=== PATIENT | female | born 1990 | race Caucasian/White ===

== ENCOUNTER 2019-11-07 09:00 | Outpatient (RCR) | payer OTHER, SELFPAY ==
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
--- NOTE | 2019-10-11 10:27 | PT.OPPOC ---
Physical, Occupational & Speech Therapy At [facility] Current Diagnoses Dyspareunia not due to a substance or known physiological condition (10/11/19) Pain in unspecified hip (10/11/19) Sacroiliitis, not elsewhere classified (10/11/19) Low back pain (10/11/19) Pelvic and perineal pain (10/11/19) Visit Care Team Role Provider Type Leonarda Shearer Attending Provider Non-Staff Primary Care Provider Specialty: Internal Medicine Address: [address] [place] [address], [facility] Email: Plan Of Care PT-OP-T Assessment and Plan Start: 08/14/19 09:21 Freq: Status: Active Protocol: Document 10/11/19 07:30 AMB (Rec: 10/11/19 10:07 AMB [id number]) Physical Therapy Assessment Goals Three Impairment Gait/stairs Short Term Goal (STG) Carito will ambulate for 20 minutes without an increase in her baseline pain. STG Duration 4 weeks Jail Goal (LTG) Carito will ascend and descend a flight of stairs with 4/10 pain or less. PROGRESS MADE LTG Duration 8 weeks Two Impairment ROM Short Term Goal (STG) Carito will increase her lumbar flexion to 50 degrees without an increase in pain. STG Duration 4 weeks Jail Goal (LTG) Carito will increase her hip flexion to 110 degrees without an increase in pain. LTG Duration 8 weeks One Impairment Strength Short Term Goal (STG) Carito will improve her knee extension on the right to 4+/5 or better. STG Duration 4 weeks Jail Goal (LTG) Carito will improve her LE strength so that she can squat down to lift her youngest child without an increase in her baseline pain. LTG Duration 8 weeks Assessment Summary Assessment Carito has been tolerating more work in PT. She continues to have pain that radiates into R hip. She has not brought up pelvic floor PT again, as she does request her 's presence during any internal assessment. She is at the point where is looking for a diagnosis, she is awaiting approval of a lumbar MRI, and is hoping to hear back from her neurologist about her brain MRI. She would likely benefit more from physial therapy after she is at the point where she understands what is going on in her body and is ready to push for better function. Physical Therapy Plan Frequency and Duration Frequency of Treatment 2x/Week Duration of Treatment 8 weeks Plan of Care Start Date 10/11/19 Plan of Care End Date 12/06/19 Therapeutic Interventions Therapeutic Interventions Aquatic Therapy,Home Exercise Program,Joint Mobilizations, Manual Therapy,Neuromuscular Re-education,Self-Care/Home Management,Therapeutic Activities,Therapeutic Exercises Modalities Biofeedback,Cold Pack/Ice Massage,Electric Stimulation, Hot Packs Next Visit Focus/Plan Next Note Type Treatment Note Next Visit Plan Advance lumbosacral stabilization as tolerated, education in chronic pain, let pt bring up pelvic floor component. Plan of Care Dates Plan of Care Start Date 10/11/19 Plan of Care End Date 12/06/19 Electronically Signed by: Za Mccauley, PT 10/11/19 [id number] Please Sign and Return: I have reviewed this Plan of Care and certify that the skilled therapy services above are required to meet the patient?s needs. Physician Signature Date Printed Name and Credentials Clinical Instructor Signature Printed Name and Credentials
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
--- NOTE | 2020-03-17 14:24 | PT-OP ANOTE ---
Pt cx'd due to new cough, a lot of coughing.
--- NOTE | 2020-05-13 10:16 | PT-OP ANOTE ---
Per phone conversation, the pt reports answering the automated phone to cancel her appt today. This message was not received by the clinic and pt appeared as a no show. The pt states she cancelled because she has been sick and has been waiting for results from COVID test. When she cancelled she had not received her test results. Today she knows she is negative, but is still sick. She reports receiving a new referral for PT, but states it was received in March. She was instructed to request another referral from her physician since her current referral is > 30 days old, and to call and schedule with her primary therapist, Za Mccauley DPT as soon as she receives her referral to get scheduled. Warned pt no to delay as schedules fill up fast. The pt states she did not schedule back in March when she first received her referral because no appts were available. Will hold chart open through June, after Za returns, to allow pt time to be seen. If pt fails to schedule, she will be discharged from therapy and will need a new referral to return to physical therapy.
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
== END 2020-06-23 14:06 ==
LOC: PHYS 09:00
PROVIDERS: PCP Internal Medicine; Visit Provider Internal Medicine
DX: M25.559 Pain in unspecified hip (principal); M54.5 Low back pain; F52.6 Dyspareunia not due to a substance or known physiological condition; R10.2 Pelvic and perineal pain; M46.1 Sacroiliitis, not elsewhere classified
CPT/HCPCS: 97014; 97110; 97140; 97162; 97535; G0283

== ENCOUNTER 2020-08-20 09:53 | Outpatient (RCR) | payer OTHER, SELFPAY ==
--- NOTE | 2020-08-20 16:00 | PT.OPPOC ---
Physical, Occupational & Speech Therapy At [facility] Current Diagnoses Low back pain (08/20/20) Pelvic and perineal pain (08/20/20) Dizziness and giddiness (08/20/20) Headache, unspecified (08/20/20) Visit Care Team Role Provider Type Leonarda Shearer MD Attending Provider Non-Staff Primary Care Provider Referring Provider Specialty: Internal Medicine Address: [address] [place] [address], [id number] Email: Plan Of Care PT-OP-T Assessment and Plan Start: 08/20/20 07:38 Freq: Status: Active Protocol: Document 08/20/20 10:15 AMB (Rec: 08/23/20 09:09 AMB [email or web address]) Physical Therapy Assessment Rehab Potential Rehabilitation Potential Fair Evaluation Complexity Number of Personal Factors/Comorbidities 3 or More Number of Body Systems Impaired 4 or More Clinical Presentation at Evaluation Evolving Impairments Impairments Activity Tolerance,Balance, Functional Activities, Functional Mobility,Pain, Posture,ROM,Strength Goals Four Impairment HEP Short Term Goal (STG) Carito will be independent and consistent with a HEP to improve her lower back, hip and pelvic floor mobility and stability STG Duration 4 weeks Three Impairment Gait/stairs Short Term Goal (STG) Carito will ambulate for 20 minutes without an increase in her baseline pain. STG Duration 4 weeks Machine Binding Folder Goal (LTG) Carito will ascend and descend a flight of stairs with 4/10 pain or less, and without loss of balance. LTG Duration 8 weeks Two Impairment ROM Short Term Goal (STG) Carito will increase her lumbar flexion to 50 degrees without an increase in pain. STG Duration 4 weeks Fpc Goal (LTG) Carito will increase her hip flexion to 110 degrees without an increase in pain. LTG Duration 8 weeks One Impairment Strength Short Term Goal (STG) Carito will improve her knee extension on the right to 4+/5 or better. STG Duration 4 weeks Fpc Goal (LTG) Carito will improve her LE strength so that she can squat down to lift her youngest child without an increase in her baseline pain. LTG Duration 8 weeks Assessment Summary Assessment Carito returns to physical therapy with similar impairments to her evaluation last year. If anything she is having more complaints and has started falling more. She has kept up with some of her gentle strengthening exercises per her report, but has not kept up with her work on her pelvic floor. Physical Therapy Plan Frequency and Duration Frequency of Treatment 1x/Week Duration of Treatment 12 weeks Plan of Care Start Date 08/20/20 Plan of Care End Date 11/12/20 Therapeutic Interventions Therapeutic Interventions Balance Training,Home Exercise Program,Manual Therapy, Neuromuscular Re-education, Self-Care/Home Management, Therapeutic Activities, Therapeutic Exercises Modalities Biofeedback,Cold Pack/Ice Massage,Electric Stimulation, Hot Packs Next Visit Focus/Plan Next Note Type Treatment Note Next Visit Plan Begin progressive relaxation/ core stability/ gentle stretching program Plan of Care Dates Plan of Care Start Date 08/20/20 Plan of Care End Date 11/12/20 Electronically Signed by: Za Mccauley, PT 08/23/20 09 Please Sign and Return: I have reviewed this Plan of Care and certify that the skilled therapy services above are required to meet the patient?s needs. Physician Signature Date Printed Name and Credentials Clinical Instructor Signature Printed Name and Credentials
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
== END 2020-12-05 10:12 ==
LOC: PHYS 09:53
PROVIDERS: PCP Internal Medicine; Referring Provider Internal Medicine; Visit Provider Internal Medicine
DX: R10.2 Pelvic and perineal pain (principal); M54.5 Low back pain; R42 Dizziness and giddiness; R51.9 Headache, unspecified
CPT/HCPCS: 97162

== ENCOUNTER 2022-02-13 16:49 | Observation (INO) | payer OTHER, SELFPAY ==
[2022-02-13] VITALS (18 sets, daily range): BP systolic 116–141; BP diastolic 75–101; PULSE 85–151; RESP 13–25; TEMP 36.4; O2SAT 95–98; BMI 39.6
--- NOTE | 2022-02-13 17:06 | DI.RAD.S_ITS ---
PROCEDURE: XR CHEST 1V INDICATIONS: chest pain TECHNIQUE: One view of the chest was acquired. COMPARISON: None. FINDINGS: Surgical changes and devices: None. Overlying EKG wires. Lungs and pleura: Lungs are clear. No pleural effusions or pneumothorax. Mediastinum: Mediastinal contours appear normal. Heart size is normal. Bones and chest wall: No suspicious bony lesions. Overlying soft tissues appear unremarkable. Metallic densities overlying the thoracic inlet likely external to patient. IMPRESSION: No evidence of an acute cardiopulmonary abnormality. Dictated by: Pankaj Toledo D.O. on 02/13/2022 at 16:32 Approved by: Pankaj Toledo D.O. on 02/13/2022 at 16:34
[2022-02-13 17:41] LABS: Add Manual Diff / Slide Review NO; Basophils Absolute Auto 100 /uL (0-100); Basophils Percent Auto 0.7 % (0-2); Eosinophils Absolute Auto 100 /uL (0-450); Eosinophils Percent Auto 0.8 % (2-4); Hematocrit 43.2 % (36-46); Hemoglobin 14.9 g/dL (12.0-16.0); Lymphocytes Absolute Auto 2000 /uL (1100-4500); Lymphocytes Percent Auto 16.1 % (25-40); Mean Corpuscular HGB Conc 34.5 % (30-36); Mean Corpuscular Hemoglobin 30.2 PG (26-34); Mean Corpuscular Volume 87.6 fL (80-100); Monocytes Absolute Auto 700 /uL (0-900); Monocytes Percent Auto 5.7 % (3-14); Neutrophils Absolute Auto 9700 /uL (1500-7000); Neutrophils Percent Auto 76.7 % (50-75); Platelet Count 281 X10^3/uL (150-400); Red Blood Cell Count 4.94 X10^6/uL (4.0-5.2); Red Cell Distribution Width 12.9 % (11.6-14.8); White Blood Cell Count 12.7 X10^3/uL (4.5-11.0)
[2022-02-13 17:55] LABS: COVID19 -Nasal RAPID Negative (Negative)
[2022-02-13 18:08] LABS: Alanine Aminotransferase 38 IU/L (<35); Albumin 4.4 g/dL (3.5-5.0); Albumin Globulin Ratio 1.2 (1.0-2.8); Alkaline Phosphatase 67 U/L (38-126); Aspartate Aminotransferase 37 IU/L (14-36); Bilirubin Total 0.4 mg/dL (0.2-1.3); Blood Urea Nitrogen 13 mg/dL (7-17); Carbon Dioxide 22 mmol/L (22-32); Chloride 103 mmol/L (98-107); Creatine Kinase 46 U/L (30-135); Estimated Glomerular Filt Rate > 60 mL/min (>60); Globulin 3.7 g/dL (1.7-4.1); Glucose 156 mg/dL (70-100); HEMOLYSIS < 15 (0-50); Lipase 106 U/L (23-300); Magnesium 1.9 mg/dL (1.6-2.3); Potassium 3.9 mmol/L (3.4-5.1); Sodium 136 mmol/L (137-145); Total Protein 8.1 g/dL (6.3-8.2)
--- NOTE | 2022-02-13 18:10 | ED_ITS ---
HPI - Arrhythmia/Palpitations General Chief Complaint: Arrhythmia/Palpitations Stated Complaint: SOB stopped BP meds/doctor heartrate 148 Time Seen by Provider: 02/13/22 17:41 Source: patient Mode of arrival: Ambulatory History of Present Illness HPI narrative: 31F nonsmoker with history of relatively new diagnosis of HTN and history of m ental health disease presents with her friend and a chief complaint of abnormal vital signs, feeling poorly, weak, short of breath and having chest pain over the past week or 2. She states that she has had a very odd course for the past few months that started with slowly rising blood pressures into the 140s in which she was eventually diagnosed with what they thought was renal artery stenosis by ultrasound. She was started on Amlodipine but tolerated it poorly and after a few days was switched to Losartan. She had been referred to nephrology and vascular she was told she does not have renal artery stenosis. She had started having increasingly low blood pressures and about a week ago had her propanolol and losartan stopped. Since then she has had episodes with her blood pressure dropping into the 80s and 90s and associated symptoms such as dizziness, weakness and lightheadedness. She denies any runny nose or sore throat. She has had episodes of chest pain and epigastric pain without obvious provocation, palliation or radiation. She has had nausea but denies any vomiting. She denies any abnormal bleeding. She denies any recent travel, history of clot or cancer Related Data Home Medications Medication Instructions Recorded Confirmed aripiprazole 2 mg tablet 2 mg PO DAILY 02/13/22 02/13/22 bupropion HCl 300 mg 24 hr tablet, 300 mg PO DAILY 02/13/22 02/13/22 extended release cyclobenzaprine 10 mg tablet 10 mg PO TID PRN 02/13/22 02/13/22 gabapentin 300 mg capsule 300 mg PO DAILY 02/13/22 02/13/22 gabapentin 300 mg capsule 600 mg PO BEDTIME 02/13/22 02/13/22 sertraline 100 mg tablet 100 mg PO DAILY 02/13/22 02/13/22 trazodone 50 mg tablet 50 mg PO BEDTIME 02/13/22 02/13/22 Allergies Allergy/AdvReac Type Severity Reaction Status Date / Time azithromycin Allergy Mild Vomiting Verified 02/13/22 17:01 Review of Systems Review of Systems Narrative: GENERAL: Denies chills, fatigue, malaise, fever, sweats. HEENT: Denies sinus pain, ear pain, sore throat, difficulty swallowing, dizziness. RESPIRATORY: see HPI CARDIOVASCULAR:see HPI GASTROINTESTINAL: Denies nausea, vomiting, abdominal pain, diarrhea, constipation, melena. : Denies dysuria, frequency, incontinence, hematuria, urinary retention. MUSCULOSKELETAL: denies weakness, joint pain, or bony pain SKIN: Denies rash, skin lesions, or other NEUROLOGIC: Denies weakness, headache, numbness, change in speech, confusion, seizures, incoordination. PSYCHIATRIC: No concerning psychosocial issues. 12 point review of systems is negative except for those stated above Patient History Medical History (Updated 02/14/22 @ 04:19 by Jordan Beltran DO) Adenomyosis Anxiety delivery due to maternal disorder Depression Eclampsia Hypertension Panic disorder Surgical History (Updated 02/14/22 @ 02:15 by Elinor Pugh MD) H/O hysterectomy for benign disease Family History (Updated 02/14/22 @ 02:45 by Elinor Pugh MD) Mother Diabetes mellitus Father Hypertension Social History household members: spouse, family and children Smoking Status: Never smoker alcohol intake: never Smoking Status: Never smoker Substance Use Type: marijuana Exam Narrative Exam Narrative: GENERAL: 31 year old patient appears stated age. Well-developed patient, in mild distress. HEAD: Atraumatic. Normocephalic. EYES: Pupils equal round and reactive. Extraocular motions intact. No scleral icterus. No injection or drainage. ENT: Nose without bleeding, purulent drainage. Throat without erythema, tonsillar hypertrophy or exudate. Airway patent. NECK: Trachea midline. Non tender CARDIOVASCULAR: Tachycardic but regular rhythm without murmurs, gallops, or rubs. RESPIRATORY: Clear to auscultation. Breath sounds equal bilaterally. No wheezes, rales, or rhonchi. GASTROINTESTINAL: Abdomen soft, non-tender, nondistended. EXTREMITIES: No edema or joint tenderness. BACK: Nontender without deformity or crepitance. No flank tenderness. NEURO: AOx3. SKIN: No rash or erythema of visible areas Initial Vital Signs Initial Vital Signs: Vital Signs Temperature 97.5 F L 02/13/22 17:01 Pulse Rate 151 H 02/13/22 17:01 Respiratory Rate 18 02/13/22 17:01 Blood Pressure 141/101 H 02/13/22 17:01 Pulse Oximetry 98 02/13/22 17:01 Course Orders Ordered: Acetaminophen (Acetaminophen 325 Mg Tablet) 650 mg PO Q6HR PRN PRN Reason: Fever/Mild Pain (1-3) Last Admin: 02/14/22 03:11 Dose: 650 mg Documented by: MANDY Aripiprazole (Aripiprazole 2 Mg Tablet) 2 mg PO DAILY MARGY Bupropion HCl (Bupropion Xl 150 Mg Tab) 300 mg PO DAILY MARGY Cyclobenzaprine HCl (Cyclobenzaprine 10 Mg Tablet) 10 mg PO TID PRN PRN Reason: Pain (Scale Score 4-6) Gabapentin (Gabapentin 300 Mg Capsule) 300 mg PO DAILY MARGY Gabapentin (Gabapentin 300 Mg Capsule) 600 mg PO BEDTIME [facility] Last Admin: 02/14/22 02:59 Dose: 600 mg Documented by: MANDY Naloxone HCl (Naloxone 0.4 Mg/Ml Vial) 0.2 mg IV Q2MIN PRN PRN Reason: Opiate Reversal Sertraline HCl (Sertraline 50 Mg Tablet) 100 mg PO DAILY MARGY Trazodone HCl (Trazodone 50 Mg Tablet) 50 mg PO BEDTIME [facility] Last Admin: 02/14/22 02:59 Dose: 50 mg Documented by: MANDY Discontinued Medications Sodium Chloride (Normal Saline 0.9%) 1,000 mls @ 1,000 mls/hr IV BOLUS ONE Stop: 02/13/22 19:11 Last Infusion: 02/13/22 20:31 Dose: 0 mls/hr Documented by: Admin: 02/13/22 18:21 Dose: 1,000 mls/hr Documented by: TRESA Sodium Chloride (Normal Saline 0.9%) 1,000 mls @ 1,000 mls/hr IV BOLUS ONE Stop: 02/13/22 22:01 Last Infusion: 02/13/22 23:25 Dose: 0 mls/hr Documented by: Admin: 02/13/22 21:05 Dose: 1,000 mls/hr Documented by: ZURI Propranolol HCl (Propranolol 10 Mg Tablet) 10 mg PO NOW ONE Stop: 02/14/22 01:52 Last Admin: 02/14/22 02:59 Dose: 10 mg Documented by: ROSDOT Vital Signs Vital signs: Vital Signs - 8 hr 02/13/22 20:30 02/13/22 20:52 02/13/22 21:00 Pulse Rate 127 H 135 H 134 H Respiratory Rate 23 22 17 Blood Pressure 122/85 129/86 125/79 Pulse Oximetry 97 97 95 02/13/22 21:30 02/13/22 22:00 02/13/22 22:30 Pulse Rate 134 H 127 H 85 Respiratory Rate 22 21 23 Blood Pressure 119/86 119/78 125/82 Pulse Oximetry 97 96 96 02/13/22 23:00 02/13/22 23:44 02/13/22 23:46 Pulse Rate 125 H 125 H 121 H Respiratory Rate 19 13 17 Blood Pressure 135/85 116/75 Pulse Oximetry 97 97 97 02/14/22 00:00 02/14/22 00:30 Pulse Rate 121 H 127 H Respiratory Rate 19 22 Blood Pressure 118/73 115/75 Pulse Oximetry 96 98 MDM - Arrhythmia/Palpitations Lab Data Result diagrams: 02/13/22 17:25 02/13/22 17:40 Labs: Lab Results 02/13/22 02/13/22 02/13/22 Range/Units 17:25 17:30 17:40 WBC 12.7 H (4.5-11.0) X10^3/uL RBC 4.94 (4.0-5.2) X10^6/uL Hgb 14.9 (12.0-16.0) g/dL Hct 43.2 (36-46) % MCV 87.6 (80-100) fL MCH 30.2 (26-34) PG MCHC 34.5 (30-36) % RDW 12.9 (11.6-14.8) % Plt Count 281 (150-400) X10^3/uL Neut % (Auto) 76.7 H (50-75) % Lymph % (Auto) 16.1 L (25-40) % [place] % (Auto) 5.7 (3-14) % Eos % (Auto) 0.8 L (2-4) % Baso % (Auto) 0.7 (0-2) % Neut # (Auto) 9700 H (6016-5665) /uL Lymph # (Auto) 2000 (7848-6526) /uL [place] # (Auto) 700 (0-900) /uL Eos # (Auto) 100 (0-450) /uL Baso # (Auto) 100 (0-100) /uL D-Dimer (<230) ng/mL Sodium 136 L (137-145) mmol/L Potassium 3.9 (3.4-5.1) mmol/L Chloride 103 (98-107) mmol/L Carbon Dioxide 22 (22-32) mmol/L BUN 13 (7-17) mg/dL Creatinine 1.00 (0.52-1.04) mg/dL Estimated GFR > 60 (>60) mL/min BUN/Creatinine Ratio 13.0 (6-22) Glucose 156 H (70-100) mg/dL Calcium 9.0 (8.4-10.2) mg/dL Magnesium 1.9 (1.6-2.3) mg/dL Total Bilirubin 0.4 (0.2-1.3) mg/dL AST 37 H (14-36) IU/L ALT 38 H (<35) IU/L Alkaline Phosphatase 67 (38-126) U/L Total Creatine Kinase 46 (30-135) U/L CK-MB (CK-2) TNP CK-MB (CK-2) Rel Index TNP Troponin I < 0.012 (0.01-0.034) ng/mL Total Protein 8.1 (6.3-8.2) g/dL Albumin 4.4 (3.5-5.0) g/dL Globulin 3.7 (1.7-4.1) g/dL Albumin/Globulin Ratio 1.2 (1.0-2.8) Lipase 106 (23-300) U/L TSH (0.47-4.68) uIU/mL SARS-CoV-2 (PCR) Negative (Negative) 02/13/22 02/13/22 Range/Units 17:40 17:57 WBC (4.5-11.0) X10^3/uL RBC (4.0-5.2) X10^6/uL Hgb (12.0-16.0) g/dL Hct (36-46) % MCV (80-100) fL MCH (26-34) PG MCHC (30-36) % RDW (11.6-14.8) % Plt Count (150-400) X10^3/uL Neut % (Auto) (50-75) % Lymph % (Auto) (25-40) % [place] % (Auto) (3-14) % Eos % (Auto) (2-4) % Baso % (Auto) (0-2) % Neut # (Auto) (6735-5621) /uL Lymph # (Auto) (2011-9455) /uL [place] # (Auto) (0-900) /uL Eos # (Auto) (0-450) /uL Baso # (Auto) (0-100) /uL D-Dimer < 200 (<230) ng/mL Sodium (137-145) mmol/L Potassium (3.4-5.1) mmol/L Chloride (98-107) mmol/L Carbon Dioxide (22-32) mmol/L BUN (7-17) mg/dL Creatinine (0.52-1.04) mg/dL Estimated GFR (>60) mL/min BUN/Creatinine Ratio (6-22) Glucose (70-100) mg/dL Calcium (8.4-10.2) mg/dL Magnesium (1.6-2.3) mg/dL Total Bilirubin (0.2-1.3) mg/dL AST (14-36) IU/L ALT (<35) IU/L Alkaline Phosphatase (38-126) U/L Total Creatine Kinase (30-135) U/L CK-MB (CK-2) CK-MB (CK-2) Rel Index Troponin I (0.01-0.034) ng/mL Total Protein (6.3-8.2) g/dL Albumin (3.5-5.0) g/dL Globulin (1.7-4.1) g/dL Albumin/Globulin Ratio (1.0-2.8) Lipase (23-300) U/L TSH 2.53 (0.47-4.68) uIU/mL SARS-CoV-2 (PCR) (Negative) Imaging Data Chest x-ray: [facility]: [address] [address] XRay Report Signed Patient: Carito Richardson MR#: [id number] : 1990 Acct:[id number] Age/Sex: 31 / F Date of Service: 02/13/22 Loc: ED Accession Number: [id number] ?? Procedure: XR chest 1V Ordering Provider: Mehul Mena D.O. PROCEDURE:? XR CHEST 1V ? INDICATIONS:? chest pain ? TECHNIQUE:? One view of the chest was acquired.? ? COMPARISON:? None. ? FINDINGS:? ? Surgical changes and devices:? None.? Overlying EKG wires. ? Lungs and pleura:? Lungs are clear.? No pleural effusions or pneumothorax.? ? Mediastinum:? Mediastinal contours appear normal.? Heart size is normal.? ? Bones and chest wall:? No suspicious bony lesions.? Overlying soft tissues appear unremarkable.? Metallic densities overlying the thoracic inlet likely external to patient. ? IMPRESSION:? ? No evidence of an acute cardiopulmonary abnormality. ? ? Dictated by: Pankaj Toledo D.O. on 02/13/2022 at 16:32 ? ? Approved by: Paknaj Toledo D.O. on 02/13/2022 at 16:34 ? CT scan - abdomen/pelvis: [facility]: [place] [address] CT Scan Report Signed Patient: Carito Richardson MR#: [id number] : 1990 Acct:[id number] Age/Sex: 31 / F Date of Service: 02/13/22 Loc: ED Accession Number: [id number] ?? Procedure: CT abdomen pelvis w con Ordering Provider: Jordan Beltran D.O. PROCEDURE:? CT ABDOMEN PELVIS W CON ? INDICATIONS:? tachycardia, chest pain, upper abdominal pain, leukocytosis ? TECHNIQUE:? After the administration of intravenous contrast, axial sections acquired from the lung bases to the pubic symphysis.? Coronal and sagittal reformats were performed.? For radiation dose reduction, the following was used:? automated exposure control, adjustment of mA and/or kV according to patient size.? ? COMPARISON:? None. ? FINDINGS:? Image quality:? Excellent.? ? Lung bases:? Unremarkable. Heart:? No significant findings. ? ABDOMEN: Liver:? Unremarkable.? ? Gallbladder:? Previously resected.? ? Biliary ducts:? Unremarkable.? ? Pancreas:? Unremarkable.? ? Spleen:? Unremarkable.? ? Adrenal Glands:? Unremarkable.? ? Kidneys and Ureters:? Unremarkable.? ? ? Stomach and Bowel:? Stomach, small bowel loops, and colon are unremarkable.? Peritoneum:? No abnormal intraperitoneal fluid.? No free air.? ? Ventral Wall: ? No hernias.? Abdominal Nodes:? No retroperitoneal or mesenteric adenopathy by size criteria.? Vessels:? Aorta and inferior vena cava are normal in size.? ? PELVIS: Pelvic Organs:? Unremarkable except for apparent prior hysterectomy..? ? Bladder:? Unremarkable.? ? Pelvic Nodes: No enlarged lymph nodes.? Miscellaneous: No hernias are seen. ? ? A normal or abnormal appendix is not found. ? Bones:? Unremarkable.? IMPRESSION:? Prior cholecystectomy and hysterectomy.? No evidence of acute dis ease within the visualized abdomen and pelvis.? A source of current pain and leukocytosis is not found. ? ? Dictated by: Ramon Oliveros M.D. on 02/13/2022 at 20:02 ? ? Approved by: Ramon Oliveros M.D. on 02/13/2022 at 20:05 ? CT scan - chest: [facility]: [place] [address] CT Scan Report Signed Patient: Carito Richardson MR#: [id number] : 1990 Acct:[id number] Age/Sex: 31 / F Date of Service: 02/13/22 Loc: ED Accession Number: [id number] ?? Procedure: CT angio chest PE protocol Ordering Provider: Jordan Beltran D.O. PROCEDURE:? CT ANGIO CHEST PE PROTOCOL ? INDICATIONS:? chest pain, SOB, tachycardia ? TECHNIQUE:? After the administration of intravenous contrast, 2 mm thick sections acquired from the pulmonary apices to the posterior costophrenic angles.? 3-dimensional maximum intensity projection (MIP) coronal and sagittal reformats were then acquired through the thorax.? For radiation dose reduction, the following was used:? automated exposure control, adjustment of mA and/or kV according to patient size.? ? COMPARISON:? None. ? FINDINGS:? Image quality:? Mildly reduced by body habitus..? ? Pulmonary arteries:? Pulmonary arteries are normal in size, and demonstrate no intraluminal filling defects to suggest central pulmonary embolism.? ? Lungs and pleura:? Lungs are clear.? No pleural effusions or pneumothorax.? Central and peripheral airways are patent.? ? Mediastinum:? Heart size is normal, without pericardial effusion.? No mediastinal or hilar adenopathy.? Thoracic aorta is normal in caliber and enhancement.? Esophagus is normal in caliber, without hiatal hernia.? ? Bones and chest wall:? No suspicious bony lesions.? Ribs and thoracic spine appear intact throughout.? Thyroid gland appears normal.? No axillary or supraclavicular adenopathy.? ? Abdomen:? Visualized upper abdominal solid organs appear normal in the early arterial phase of enhancement.? ? IMPRESSION:? No evidence of pneumonia, pneumonitis, or pulmonary embolus.? Source of current chest pain and shortness of breath is not identified. ? ? Dictated by: Ramon Oliveros M.D. on 02/13/2022 at 20:16 ? ? Approved by: Ramon Oliveros M.D. on 02/13/2022 at 20:18 ? ECG Data Interpretation: EKG is sinus tachycardia with rate of 128 and free of any signs of ischemia or ectopy. No ST segmental elevation or depression. No T wave inversions MDM Narrative Medical decision making narrative: Patient continues to have persistent, symptomatic sinus tachycardia at despite 2 L IV fluid. She has been thoroughly evaluated and there is no significant lab abnormality, EKG shows no abnormality other than sinus tachycardia. No evidence of electrolyte abnormality, profound dehydration, anemia, sepsis. Pulmonary embolism considered but thought unlikely given lack of findings on CT angiogram. No abnormal findings on advanced imaging. This is most likely a consequence of medication reaction, or absence, perhaps even rebound tachycardia given recent cessation of Inderal. Patient requires hospitalization for further evaluation, possible echo, stabilization medications. Discharge Plan Departure Patient Disposition: Admitted as Observation Clinical Impression: Tachycardia, Dizziness, Medication reaction Admit Date/Time: 02/14/22 00:54 Admit Provider: Elinor Pugh
[2022-02-13 18:19] LABS: Troponin I < 0.012 ng/mL (0.01-0.034)
[2022-02-13] MEDS: SODIUM CHLORIDE 0.9% 1,000 ML 1000 ML IV ×2 (18:21→21:05)
[2022-02-13 18:24] LABS: D Dimer < 200 ng/mL (<230)
--- NOTE | 2022-02-13 18:41 | PC.NURSE ---
Pt states she was taken off of Propranolol 40mg BID (had been taking for 1.5yrs) and Losartan 100mg daily by her PCP oleg torres
--- NOTE | 2022-02-13 18:51 | DI.CT.S_ITS ---
PROCEDURE: CT ANGIO CHEST PE PROTOCOL INDICATIONS: chest pain, SOB, tachycardia TECHNIQUE: After the administration of intravenous contrast, 2 mm thick sections acquired from the pulmonary apices to the posterior costophrenic angles. 3-dimensional maximum intensity projection (MIP) coronal and sagittal reformats were then acquired through the thorax. For radiation dose reduction, the following was used: automated exposure control, adjustment of mA and/or kV according to patient size. COMPARISON: None. FINDINGS: Image quality: Mildly reduced by body habitus.. Pulmonary arteries: Pulmonary arteries are normal in size, and demonstrate no intraluminal filling defects to suggest central pulmonary embolism. Lungs and pleura: Lungs are clear. No pleural effusions or pneumothorax. Central and peripheral airways are patent. Mediastinum: Heart size is normal, without pericardial effusion. No mediastinal or hilar adenopathy. Thoracic aorta is normal in caliber and enhancement. Esophagus is normal in caliber, without hiatal hernia. Bones and chest wall: No suspicious bony lesions. Ribs and thoracic spine appear intact throughout. Thyroid gland appears normal. No axillary or supraclavicular adenopathy. Abdomen: Visualized upper abdominal solid organs appear normal in the early arterial phase of enhancement. IMPRESSION: No evidence of pneumonia, pneumonitis, or pulmonary embolus. Source of current chest pain and shortness of breath is not identified. Dictated by: Ramon Oliveros M.D. on 02/13/2022 at 20:16 Approved by: Ramon Oliveros M.D. on 02/13/2022 at 20:18
--- NOTE | 2022-02-13 18:53 | DI.CT.S_ITS ---
PROCEDURE: CT ABDOMEN PELVIS W CON INDICATIONS: tachycardia, chest pain, upper abdominal pain, leukocytosis TECHNIQUE: After the administration of intravenous contrast, axial sections acquired from the lung bases to the pubic symphysis. Coronal and sagittal reformats were performed. For radiation dose reduction, the following was used: automated exposure control, adjustment of mA and/or kV according to patient size. COMPARISON: None. FINDINGS: Image quality: Excellent. Lung bases: Unremarkable. Heart: No significant findings. ABDOMEN: Liver: Unremarkable. Gallbladder: Previously resected. Biliary ducts: Unremarkable. Pancreas: Unremarkable. Spleen: Unremarkable. Adrenal Glands: Unremarkable. Kidneys and Ureters: Unremarkable. Stomach and Bowel: Stomach, small bowel loops, and colon are unremarkable. Peritoneum: No abnormal intraperitoneal fluid. No free air. Ventral Wall: No hernias. Abdominal Nodes: No retroperitoneal or mesenteric adenopathy by size criteria. Vessels: Aorta and inferior vena cava are normal in size. PELVIS: Pelvic Organs: Unremarkable except for apparent prior hysterectomy.. Bladder: Unremarkable. Pelvic Nodes: No enlarged lymph nodes. Miscellaneous: No hernias are seen. A normal or abnormal appendix is not found. Bones: Unremarkable. IMPRESSION: Prior cholecystectomy and hysterectomy. No evidence of acute disease within the visualized abdomen and pelvis. A source of current pain and leukocytosis is not found. Dictated by: Ramon Oliveros M.D. on 02/13/2022 at 20:02 Approved by: Ramon Oliveros M.D. on 02/13/2022 at 20:05
[2022-02-13 19:46] LABS: TSH w/ Reflex to FT4 2.53 uIU/mL (0.47-4.68)
[2022-02-14] VITALS (9 sets, daily range): BP systolic 109–166; BP diastolic 69–107; PULSE 94–127; RESP 16–22; TEMP 36.4–36.7; O2SAT 95–98; BMI 39.6
--- NOTE | 2022-02-14 02:13 | P.HP_ITS ---
History of Present Illness History of Present Illness Chief complaint: SOB stopped BP meds/doctor heartrate 148 Narrative: Patient is a 31-year-old female with depression/anxiety, and panic disorder, hypertension who presents to the emergency department with tachycardia and shortness of breath. Patient reports a history of eclampsia with which resulted in a at 30 weeks. She also had a hysterectomy approximately 4 years ago due to adenomyosis. She does struggle with depression/anxiety as well as a panic disorder. She follows with a provider locally for her psychiatric medications. She is also on propranolol for her panic disorder. Recently, her primary care provider noted that her blood pressure was increasing. Urine protein was done and was positive. She was therefore referred to a baseball pitcher for further evaluation. Initially, they started her on amlodipine. She notes she did not tolerate it, it was discontinued, and she was subsequently started on losartan. There is some concern for renal artery stenosis. A renal arterial ultrasound was done and was initially concerning for being abnormal. A vascular surgeon was consulted, renal artery ultrasound was repeated, and it has since been ruled out. Shortly after being started on the losartan, patient developed progressive difficulties with hypotension. She had blood pressures as low as the 70s systolic. Subs equently, her blood pressure medications as well as propranolol were discontinued. Since that time, she has noticed persistent tachycardia. She states that she is having exercise intolerance. She notes that when her rate is fast she also developed a left-sided headache. She has had some shortness of breath. No chest pain or tightness. Heart rate today was 148 and she subsequently presented for further evaluation. On arrival to the Emergency Department, heart rate was noted to be in the 120s consistently. Blood pressures were within normal limits. White blood cell count was mildly elevated at 12.7. Sodium was slightly low at 136. Glucose was elevated at 156. Very mild elevations of her AST and ALT were noted. TSH was normal at 2.53. Lipase was normal. COVID was negative. Chest x-ray was within normal limits. D-dimer was within normal limits. CT pulmonary angiogram was do ne to rule out pulmonary embolus. There is no evidence of infection or emboli. CT of the abdomen and pelvis were also performed which revealed evidence of prior cholecystectomy and hysterectomy but no acute abnormalities. Patient received 1 L of normal saline. She remained persistently tachycardic. Admission was recommended for further observation and consideration of an echocardiogram. Patient reports she has been eating and drinking well. No nausea or vomiting. She states she drinks a 0.5 gal of water daily. No fevers or chills. No ill symptoms. Patient History Medical History (Updated 02/14/22 @ 02:16 by Elinor Pugh MD) Adenomyosis Anxiety delivery due to maternal disorder Depression Eclampsia Hypertension Panic disorder Surgical History (Updated 02/14/22 @ 02:15 by Elinor Pugh MD) H/O hysterectomy for benign disease Family & Social History Family History (Updated 02/14/22 @ 02:45 by Elinor Pugh MD) Mother Diabetes mellitus Father Hypertension Social History: Lifelong nonsmoker. No alcohol use. [place] 2 [place]. Safety & Behavioral: Feels Safe in Current Yes Environment Been Physically Hurt or No Threatened By a Person Tobacco & Substance use: Smoking Status Never smoker Substance Use Type marijuana Meds Home Medications and Allergies Home Medications Medication Instructions Recorded Confirmed Type aripiprazole 2 mg tablet 2 mg PO DAILY 02/13/22 02/13/22 History bupropion HCl 300 mg 24 hr tablet, 300 mg PO DAILY 02/13/22 02/13/22 History extended release cyclobenzaprine 10 mg tablet 10 mg PO TID PRN 02/13/22 02/13/22 History gabapentin 300 mg capsule 300 mg PO DAILY 02/13/22 02/13/22 History gabapentin 300 mg capsule 600 mg PO BEDTIME 02/13/22 02/13/22 History sertraline 100 mg tablet 100 mg PO DAILY 02/13/22 02/13/22 History trazodone 50 mg tablet 50 mg PO BEDTIME 02/13/22 02/13/22 History Allergies Allergy/AdvReac Type Severity Reaction Status Date / Time azithromycin Allergy Mild Vomiting Verified 02/13/22 17:01 Review of Systems Review of Systems Narrative: All other systems were reviewed negative Exam Vital Signs (past 8 hours): - 02/13/22 18:30 02/13/22 19:00 02/13/22 19:30 Pulse Rate 138 H 133 H 121 H Respiratory Rate 13 20 18 Blood Pressure 126/84 118/87 124/82 Pulse Oximetry 98 96 96 02/13/22 20:00 02/13/22 20:12 02/13/22 20:30 Pulse Rate 103 H 122 H 127 H Respiratory Rate 17 15 23 Blood Pressure 139/91 H 133/86 122/85 Pulse Oximetry 98 98 97 02/13/22 20:52 02/13/22 21:00 02/13/22 21:30 Pulse Rate 135 H 134 H 134 H Respiratory Rate 22 17 22 Blood Pressure 129/86 125/79 119/86 Pulse Oximetry 97 95 97 02/13/22 22:00 02/13/22 22:30 02/13/22 23:00 Pulse Rate 127 H 85 125 H Respiratory Rate 21 23 19 Blood Pressure 119/78 125/82 135/85 Pulse Oximetry 96 96 97 02/13/22 23:44 02/13/22 23:46 02/14/22 00:00 Pulse Rate 125 H 121 H 121 H Respiratory Rate 13 17 19 Blood Pressure 116/75 118/73 Pulse Oximetry 97 97 96 02/14/22 00:30 02/14/22 01:00 02/14/22 01:30 Pulse Rate 127 H 126 H 126 H Respiratory Rate 22 20 16 Blood Pressure 115/75 127/74 122/81 Pulse Oximetry 98 98 97 Oxygen Delivery Method Room Air Narrative Exam Narrative: GEN: Very pleasant adult female, Alert and oriented x3, no acute distress HEENT: Normocephalic, face symmetric, pupils equal round reactive to light, extraocular movements intact, sclerae anicteric, conjunctiva clear, nares patent, oropharynx reveals an intact soft and hard palate with moist mucous membranes, dentition is fair NECK: Supple, no lymphadenopathy, thyroid without enlargement or nodularity, carotids no bruits CHEST: Respiratory excursions symmetric, clear to auscultation bilaterally CV: Moderately tachycardic with regular rhythm, no murmurs, rubs, gallops, PMI cannot be palpated ABD: Soft, obese, nontender, nondistended, bowel sounds present in all 4 quadrants, body habitus limits exam EXTR: Warm, well perfused, no clubbing/cyanosis/edema SKIN: Warm and dry, without rash NEURO: Alert and oriented x3, cranial nerves 2 through 12 are intact and symmetric bilaterally, motor strength 5/5 throughout, sensation intact throughout PSYCH: Mood and affect is within normal limits, judgment and insight are appropriate Objective ECG Impression: Sinus tachycardia with a rate of 128. No acute ST or T-wave changes. Labs Result Diagrams: 02/13/22 17:25 02/13/22 17:40 Labs: Laboratory Results - last 24 hr 02/13/22 02/13/22 02/13/22 17:25 17:30 17:40 WBC 12.7 H RBC 4.94 Hgb 14.9 Hct 43.2 MCV 87.6 MCH 30.2 MCHC 34.5 RDW 12.9 Plt Count 281 Neut % (Auto) 76.7 H Lymph % (Auto) 16.1 L [place] % (Auto) 5.7 Eos % (Auto) 0.8 L Baso % (Auto) 0.7 Neut # (Auto) 9700 H Lymph # (Auto) 2000 [place] # (Auto) 700 Eos # (Auto) 100 Baso # (Auto) 100 D-Dimer Sodium 136 L Potassium 3.9 Chloride 103 Carbon Dioxide 22 BUN 13 Creatinine 1.00 Estimated GFR > 60 BUN/Creatinine Ratio 13.0 Glucose 156 H Calcium 9.0 Magnesium 1.9 Total Bilirubin 0.4 AST 37 H ALT 38 H Alkaline Phosphatase 67 Total Creatine Kinase 46 CK-MB (CK-2) TNP CK-MB (CK-2) Rel Index TNP Troponin I < 0.012 Total Protein 8.1 Albumin 4.4 Globulin 3.7 Albumin/Globulin Ratio 1.2 Lipase 106 TSH SARS-CoV-2 (PCR) Negative 02/13/22 02/13/22 17:40 17:57 WBC RBC Hgb Hct MCV MCH MCHC RDW Plt Count Neut % (Auto) Lymph % (Auto) [place] % (Auto) Eos % (Auto) Baso % (Auto) Neut # (Auto) Lymph # (Auto) [place] # (Auto) Eos # (Auto) Baso # (Auto) D-Dimer < 200 Sodium Potassium Chloride Carbon Dioxide BUN Creatinine Estimated GFR BUN/Creatinine Ratio Glucose Calcium Magnesium Total Bilirubin AST ALT Alkaline Phosphatase Total Creatine Kinase CK-MB (CK-2) CK-MB (CK-2) Rel Index Troponin I Total Protein Albumin Globulin Albumin/Globulin Ratio Lipase TSH 2.53 SARS-CoV-2 (PCR) Assessment & Plan Assessment and plan (1) Panic disorder: Status: Acute (2) Anxiety: Status: Acute (3) Depression: Status: Acute (4) Hypertension: Status: Acute Assessment & Plan narrative: 1. Sinus tachycardia Patient presented to the emergency department with tachycardia, shortness of breath with exertion, left-sided headache. She underwent extensive workup in the emergency department which revealed no evidence of infection, no evidence of hyperthyroidism, pulmonary embolus, arrhythmia, or other obvious etiology. Suspect reflex tachycardia from abrupt discontinuation of propranolol, which she had taken for quite a long time for her underlying panic disorder. Therefore, I am ordered a 1 time dose of propranolol. Echocardiogram has been ordered for the morning. However, if her tachycardia improves with resumption of propranolol, that may not be necessary. Patient is admitted under observation status. She had no arrhythmia in the emergency department during her stay there, I have not continued telemetry on the floor. 2. Hypertension Patient recently underwent extensive workup for hypertension. She had some proteinuria. Had a renal artery ultrasound which was initially interpreted as possibly abnormal. Subsequently it was confirmed her renal arteries were within normal limits and showed no evidence of renal artery stenosis. Unfortunately, when she was on a combination of both losartan and propranolol she developed hypotension. Blood pressure medications were subsequently discontinued. Blood pressure has been normotensive here. 3. Hyperglycemia Patient does have a family history of diabetes. Additionally, she has class 2 obesity, which increases her risk for diabetes. She was hyperglycemic in the emergency department. Will check a hemoglobin A1c. 4. Leukocytosis Likely reactive. Patient denies any symptoms of acute illness. 5. Minimal LFT elevation AST and ALT are minimally elevated. Would refer back to her primary care provider further follow-up. Given her obesity, she is at risk for steatohepatitis. 6. Anxiety/depression Will resume her usual home medications including gabapentin, Abilify, trazodone, Wellbutrin, Zoloft. 7. Panic disorder She had been on propranolol for her anxiety. She was unaware this was also a blood pressure medication. Her baseball pitcher therefore was unaware that she was taking propranolol. As noted above, she appears to have reflex tachycardia secondary to abrupt discontinuation. Discussed with her the possibility of her primary care provider continuing her on a beta-mravin to control both her blood pressure and her panic disorder. 8. Class 2 obesity BMI is 39 7. Would benefit from weight reduction. Code status Full Prophylaxis Low Franck score Disposition Admit to acute care under observation status. Time Spent With Patient Critical Care time: I spent a total of [] minutes of critical care time on this patient's care today; this time is exclusive of procedural time.
[2022-02-14] MEDS: PROPRANOLOL 10 MG TABLET PO (02:59)
[2022-02-14] MEDS: GABAPENTIN 300 MG CAPSULE 600 MG PO (02:59)
[2022-02-14] MEDS: TRAZODONE 50 MG TABLET PO (02:59)
[2022-02-14] MEDS: ACETAMINOPHEN 325 MG TABLET 650 MG PO (03:11)
--- NOTE | 2022-02-14 03:17 | PC.NURSE ---
Pt takes 2 mg of abilify at night time and according to [facility] the only dose we have in the hospital is [address] Pugh and she stated is ok for patient to take her own medication tonight.
[2022-02-14 05:54] LABS: Add Manual Diff / Slide Review NO; Basophils Absolute Auto 100 /uL (0-100); Basophils Percent Auto 0.6 % (0-2); Eosinophils Absolute Auto 100 /uL (0-450); Hematocrit 37.2 % (36-46); Hemoglobin 13.2 g/dL (12.0-16.0); Lymphocytes Absolute Auto 2400 /uL (1100-4500); Lymphocytes Percent Auto 23.1 % (25-40); Mean Corpuscular HGB Conc 35.4 % (30-36); Mean Corpuscular Hemoglobin 30.9 PG (26-34); Mean Corpuscular Volume 87.3 fL (80-100); Monocytes Absolute Auto 700 /uL (0-900); Monocytes Percent Auto 6.4 % (3-14); Neutrophils Absolute Auto 7100 /uL (1500-7000); Neutrophils Percent Auto 68.9 % (50-75); Platelet Count 230 X10^3/uL (150-400); Red Blood Cell Count 4.27 X10^6/uL (4.0-5.2); Red Cell Distribution Width 12.9 % (11.6-14.8); White Blood Cell Count 10.2 X10^3/uL (4.5-11.0)
[2022-02-14 06:00] LABS: Alanine Aminotransferase 30 IU/L (<35); Albumin 3.7 g/dL (3.5-5.0); Albumin Globulin Ratio 1.1 (1.0-2.8); Alkaline Phosphatase 57 U/L (38-126); Aspartate Aminotransferase 28 IU/L (14-36); BUN Creatinine Ratio 13.3 (6-22); Bilirubin Total 0.5 mg/dL (0.2-1.3); Blood Urea Nitrogen 12 mg/dL (7-17); Calcium 8.6 mg/dL (8.4-10.2); Carbon Dioxide 23 mmol/L (22-32); Chloride 107 mmol/L (98-107); Estimated Glomerular Filt Rate > 60 mL/min (>60); Globulin 3.3 g/dL (1.7-4.1); Glucose 110 mg/dL (70-100); HEMOLYSIS < 15 (0-50); Potassium 4.2 mmol/L (3.4-5.1); Sodium 138 mmol/L (137-145)
[2022-02-14 06:10] LABS: NT-proBNP (BNP-Adult 18+) 46 pg/mL (<125)
[2022-02-14 06:49] LABS: Hemoglobin A1C% w Est Avg Glu 5.4 % (4.0-6.0)
[2022-02-14] MEDS: PROPRANOLOL 10 MG TABLET 20 MG PO (08:15)
[2022-02-14] MEDS: buPROPion XL 150 MG TAB 300 MG PO (09:30)
[2022-02-14] MEDS: SERTRALINE 50 MG TABLET 100 MG PO (09:30)
[2022-02-14] MEDS: GABAPENTIN 300 MG CAPSULE PO (09:31)
--- NOTE | 2022-02-14 12:49 | PC.NURSE ---
Pt AOx4. Morning medications given. Discharge instructions given, IV removed fully intact. Pt's friend was waiting downstairs by ED.
--- NOTE | 2022-02-14 16:46 | P.DS_ITS ---
History of Present Illness History of Present Illness Chief complaint: SOB stopped BP meds/doctor heartrate 148 Narrative: 31-year-old female with depression/anxiety, and panic disorder, hypertension who presents to the emergency department with tachycardia and shortness of breath.? Patient reports a history of eclampsia with which resulted in a C- section at 30 weeks.? She also had a hysterectomy approximately 4 years ago due to adenomyosis.? She does struggle with depression/anxiety as well as a panic disorder.? She follows with a provider locally for her psychiatric medications.? She is also on propranolol for her panic disorder.? Recently, her primary care provider noted that her blood pressure was increasing.? Urine protein was done and was positive.? She was therefore referred to a estimating manager for further evaluation.? Initially, they started her on amlodipine.? She notes she did not t olerate it, it was discontinued, and she was subsequently started on losartan.? There is some concern for renal artery stenosis.? A renal arterial ultrasound was done and was initially concerning for being abnormal.? A vascular surgeon was consulted, renal artery ultrasound was repeated, and it has since been ruled out.? Shortly after being started on the losartan, patient developed progressive difficulties with hypotension.? She had blood pressures as low as the 70s systolic.? Subsequently, her blood pressure medications as well as propranolol were discontinued.? Since that time, she has noticed persistent tachycardia.? She states that she is having exercise intolerance.? She notes that when her rate is fast she also developed a left-sided headache.? She has had some shortness of breath.? No chest pain or tightness.? Heart rate today was 148 and she subsequently presented for further evaluation. On arrival to the Emergency Department, heart rate was noted to be in the 120s consistently.? Blood pressures were within normal limits.? White blood cell count was mildly elevated at 12.7.? Sodium was slightly low at 136.? Glucose was elevated at 156.? Very mild elevations of her AST and ALT were noted.? TSH was normal at 2.53.? Lipase was normal.? COVID was negative.? Chest x-ray was within normal limits.? D-dimer was within normal limits.? CT pulmonary angiogram was done to rule out pulmonary embolus.? There is no evidence of infection or emboli.? CT of the abdomen and pelvis were also performed which revealed evidence of prior cholecystectomy and hysterectomy but no acute abnormalities.? Patient received 1 L of normal saline.? She remained persistently tachycardic.? Admission was recommended for further observation and consideration of an echocardiogram. Patient reports she has been eating and drinking well.? No nausea or vomiting.? She states she drinks a 0.5 gal of water daily.? No fevers or chills.? No ill symptoms. Discharge Providers Provider Date of admission: 02/14/22 00:54 Discharge Date: 02/14/22 Primary care physician: Leonarda Shearer MD Discharge provider: Bharat Aguilera MD Summary Hospital Course Discharge Diagnosis: 1. Reflex sinus tachycardia secondary to cessation of beta-marvin 2. Hypertension 3. Panic disorder 4. Acute leukocytosis, reactive 5. Stress hyperglycemia, normal A1c Hospital Course: Patient admitted overnight to hospital observation. She was put back on her propranolol with marked improvement in palpitations. Her heart rate had come down to normal range by the time of discharge. She would like to go back on her previous dose of metoprolol which was helping her panic symptoms as well as headaches. Status at Discharge Cognitive/behavioral status at discharge: oriented Functional status at discharge: independent ambulation Overall status at discharge: patient is back to baseline Time Spent with Patient Time spent: Less than 30 minutes Exam Vital Signs (past 8 hours): Oxygen Delivery Method Room Air Oxygen Flow Rate 0 Narrative Exam Narrative: General: Alert smiling female in no distress Objective Labs Result Diagrams: 02/14/22 05:35 02/14/22 05:35 Labs: Laboratory Results - last 24 hr 02/13/22 02/13/22 02/13/22 17:25 17:30 17:40 WBC 12.7 H RBC 4.94 Hgb 14.9 Hct 43.2 MCV 87.6 MCH 30.2 MCHC 34.5 RDW 12.9 Plt Count 281 Neut % (Auto) 76.7 H Lymph % (Auto) 16.1 L [place] % (Auto) 5.7 Eos % (Auto) 0.8 L Baso % (Auto) 0.7 Neut # (Auto) 9700 H Lymph # (Auto) 2000 [place] # (Auto) 700 Eos # (Auto) 100 Baso # (Auto) 100 D-Dimer Sodium 136 L Potassium 3.9 Chloride 103 Carbon Dioxide 22 BUN 13 Creatinine 1.00 Estimated GFR > 60 BUN/Creatinine Ratio 13.0 Glucose 156 H Hemoglobin A1c Calcium 9.0 Magnesium 1.9 Total Bilirubin 0.4 AST 37 H ALT 38 H Alkaline Phosphatase 67 Total Creatine Kinase 46 CK-MB (CK-2) TNP CK-MB (CK-2) Rel Index TNP Troponin I < 0.012 NT-Pro-B Natriuret Pep Total Protein 8.1 Albumin 4.4 Globulin 3.7 Albumin/Globulin Ratio 1.2 Lipase 106 TSH SARS-CoV-2 (PCR) Negative 02/13/22 02/13/22 02/14/22 17:40 17:57 05:35 WBC RBC Hgb Hct MCV MCH MCHC RDW Plt Count Neut % (Auto) Lymph % (Auto) [place] % (Auto) Eos % (Auto) Baso % (Auto) Neut # (Auto) Lymph # (Auto) [place] # (Auto) Eos # (Auto) Baso # (Auto) D-Dimer < 200 Sodium Potassium Chloride Carbon Dioxide BUN Creatinine Estimated GFR BUN/Creatinine Ratio Glucose Hemoglobin A1c Calcium Magnesium Total Bilirubin AST ALT Alkaline Phosphatase Total Creatine Kinase CK-MB (CK-2) CK-MB (CK-2) Rel Index Troponin I NT-Pro-B Natriuret Pep 46 Total Protein Albumin Globulin Albumin/Globulin Ratio Lipase TSH 2.53 SARS-CoV-2 (PCR) 02/14/22 02/14/22 02/14/22 05:35 05:35 05:35 WBC 10.2 RBC 4.27 Hgb 13.2 Hct 37.2 MCV 87.3 MCH 30.9 MCHC 35.4 RDW 12.9 Plt Count 230 Neut % (Auto) 68.9 Lymph % (Auto) 23.1 L [place] % (Auto) 6.4 Eos % (Auto) 1.0 L Baso % (Auto) 0.6 Neut # (Auto) 7100 H Lymph # (Auto) 2400 [place] # (Auto) 700 Eos # (Auto) 100 Baso # (Auto) 100 D-Dimer Sodium 138 Potassium 4.2 Chloride 107 Carbon Dioxide 23 BUN 12 Creatinine 0.90 Estimated GFR > 60 BUN/Creatinine Ratio 13.3 Glucose 110 H Hemoglobin A1c 5.4 Calcium 8.6 Magnesium Total Bilirubin 0.5 AST 28 ALT 30 Alkaline Phosphatase 57 Total Creatine Kinase CK-MB (CK-2) CK-MB (CK-2) Rel Index Troponin I NT-Pro-B Natriuret Pep Total Protein 7.0 Albumin 3.7 Globulin 3.3 Albumin/Globulin Ratio 1.1 Lipase TSH SARS-CoV-2 (PCR) PFSH Medical History (Updated 02/14/22 @ 04:19 by Jordan Beltran DO) Adenomyosis Anxiety delivery due to maternal disorder Depression Eclampsia Hypertension Panic disorder Surgical History (Updated 02/14/22 @ 02:15 by Elinor Pugh MD) H/O hysterectomy for benign disease Family History (Updated 02/14/22 @ 02:45 by Elinor Pugh MD) Mother Diabetes mellitus Father Hypertension Social History household members: spouse, family and children Smoking Status: Never smoker alcohol intake: never Discharge Plan Discharge Plan Patient Disposition: Home Provider Discharge Comment: You were evaluated for tachycardia and shortness of breath. We think this is due to reflex tachycardia from stopping propranolol. resume taking as we discussed and follow up with PCP. Discharge orders & Medications Prescriptions: New propranolol 40 mg tablet 40 mg PO DAILY Qty: 1 0RF Continued cyclobenzaprine 10 mg tablet 10 mg PO TID PRN (Reason: Pain (Scale Score 4-6)) 0RF trazodone 50 mg tablet 50 mg PO BEDTIME 0RF Label Comments: TAKE 1 TABLET BY MOUTH AT BEDTIME sertraline 100 mg tablet 100 mg PO DAILY 0RF gabapentin 300 mg capsule 300 mg PO DAILY 0RF gabapentin 300 mg capsule 600 mg PO BEDTIME 0RF Label Comments: TAKE 1 CAPSULE BY MOUTH EVERY MORNING AND 2 CAPSULES EVERY EVENING bupropion HCl 300 mg tablet extended release 24 hr 300 mg PO DAILY 0RF aripiprazole 2 mg tablet 2 mg PO DAILY 0RF Label Comments: TAKE 1 TABLET BY MOUTH EVERY DAY Follow up/Referrals: Leonarda Shearer MD [Primary Care Provider] - Diet/Activity/Treatments Diet: Regular Discharge Data Primary Care Provider: Leonarda Shearer Attending Provider: Elinor Pugh VTE Deep Vein Thrombosis/Pulmonary Embolism Present on Admission: No
== END 2022-02-14 11:15 | disposition home or self-care (01) ==
LOC: ED 22:38 → AC 02-14 00:55
PROVIDERS: Emergency Medicine; Admitting Provider Family Medicine; Emergency Provider Emergency Medicine; PCP Internal Medicine; Referring Provider Family Medicine; Visit Provider Family Medicine
DX: R00.0 Tachycardia, unspecified (principal); R06.02 Shortness of breath; I10 Essential (primary) hypertension; R73.9 Hyperglycemia, unspecified; D72.829 Elevated white blood cell count, unspecified; F41.9 Anxiety disorder, unspecified; F32.A Depression, unspecified; F41.0 Panic disorder [episodic paroxysmal anxiety]; E66.9 Obesity, unspecified; Z68.39 Body mass index [BMI] 39.0-39.9, adult; Z20.822 Contact with and (suspected) exposure to COVID-19
CPT/HCPCS: 36415; 71045; 71275; 74177; 80053; 82550; 83036; 83690; 83735; 83880; 84443; 84484; 85025; 85379; 87635; 93005; 93010; 94760; 96360; 96361; 99284; C9803; G0378

== ENCOUNTER 2022-05-30 10:17 | Emergency (ER) | payer OTHER, SELFPAY ==
[2022-02-14 02:15] VITALS: BMI 39.6
[2022-05-30 10:31] VITALS: BP 147/96; PULSE 85; RESP 18; TEMP 36.6; O2SAT 97; BMI 44.3
--- NOTE | 2022-05-30 10:36 | ED_ITS ---
HPI - Back Pain/Injury General Chief Complaint: Back Pain/Injury Stated Complaint: back injury Time Seen by Provider: 05/30/22 10:28 Source: patient Mode of arrival: Ambulatory Limitations: no limitations History of Present Illness HPI Narrative: Patient is a 31-year-old female who has had back pain in the past however presents with a onset of different back pain. She states that it happened a couple days ago. She did have some GI upset. She was sitting on the toilet. She stood up from the toilet and got a sudden onset of left-sided back discomfort. It is located over her left hip. Does not radiate to her foot. No fevers. She has tried Tylenol and Flexeril which she had at home with only minimal improvement. She is also been doing heat and ice and stretching. Related Data Home Medications Medication Instructions Recorded Confirmed aripiprazole 2 mg tablet 2 mg PO DAILY 02/13/22 02/13/22 bupropion HCl 300 mg 24 hr tablet, 300 mg PO DAILY 02/13/22 02/13/22 extended release cyclobenzaprine 10 mg tablet 10 mg PO TID PRN Pain (Scale Score 02/13/22 02/13/22 4-6) gabapentin 300 mg capsule 300 mg PO DAILY 02/13/22 02/13/22 gabapentin 300 mg capsule 600 mg PO BEDTIME 02/13/22 02/13/22 sertraline 100 mg tablet 100 mg PO DAILY 02/13/22 02/13/22 trazodone 50 mg tablet 50 mg PO BEDTIME 02/13/22 02/13/22 Previous Rx's Medication Instructions Recorded propranolol 40 mg tablet 40 mg PO DAILY #1 tab 02/14/22 hydrocodone 5 mg-acetaminophen 325 1 tab PO Q6H PRN pain #7 tabs 05/30/22 mg tablet Allergies Allergy/AdvReac Type Severity Reaction Status Date / Time azithromycin Allergy Mild Vomiting Verified 02/13/22 17:01 Review of Systems Gastrointestinal Gastrointestinal: Reports system reviewed and no additional complaints, except as documented Genitourinary Genitourinary: Reports system reviewed and no additional complaints, except as documented Musculoskeletal Musculoskeletal: Reports system reviewed and no additional complaints, except as documented Integumentary/Breasts Skin/Breast: Reports system reviewed and no additional complaints, except as documented Neurologic Neurologic: Reports system reviewed and no additional complaints, except as doc umented Hematologic/Lymphatic On Anticoagulants: No Patient History Medical History Adenomyosis Anxiety delivery due to maternal disorder Depression Eclampsia Hypertension Panic disorder Surgical History (Updated 02/14/22 @ 02:15 by Elinor Pugh MD) H/O hysterectomy for benign disease Family History (Updated 02/14/22 @ 02:45 by Elinor Pugh MD) Mother Diabetes mellitus Father Hypertension Social History household members: spouse, family and children Smoking Status: Never smoker alcohol intake: never Smoking Status: Never smoker Substance Use Type: marijuana Exam HENMT Head: normal to inspection GI Inspection: normal to inspection Palpation: soft and No tender Back/Spine/Pelvis Other: Tenderness to palpation over the left posterior/lateral hip and gluteus muscle. No midline lumbar spinal tenderness. Neuro General: patient alert, patient awake, patient oriented x3 and moves all extremities Speech: speech normal Extrem General: normal to inspection and capillary refill normal MDM - Back Pain/Injury MDM Narrative Medical decision making narrative: Patient is ambulatory. Her exam is clearly musculoskeletal. I feel we can hold on any radiologic studies. I have low suspicion that this is cauda equina. Discomfort is not midline. It is lateral. We discussed conservative treatments at home. She was given return precautions follow-up instructions. She expressed understanding and agreement. Discharge Plan Departure Patient Disposition: Home Clinical Impression: Strain of lumbar region Instructions: DI for Low Back Pain, DI for Muscle Strain Activity Restrictions/Additional Instructions: I recommend that you continue with the conservative measures such as heat and ice and massage and stretching. I also recommend that you continue with the anti-inflammatories such as Naprosyn ibuprofen or Motrin. You can purchase these [id number]. You can also add Tylenol to this. You can continue to use your home Flexeril if this seems to be helpful to you. Use the pain medication as needed but also use it sparingly. Contact your primary provider for follow-up. I do anticipate your symptoms improving over the next several days/weeks. Prescriptions: New hydrocodone-acetaminophen 5-325 mg tablet 1 tab PO Q6H PRN (Reason: pain) Qty: 7 0RF No Action cyclobenzaprine 10 mg tablet 10 mg PO TID PRN (Reason: Pain (Scale Score 4-6)) trazodone 50 mg tablet 50 mg PO BEDTIME Label Comments: TAKE 1 TABLET BY MOUTH AT BEDTIME sertraline 100 mg tablet 100 mg PO DAILY gabapentin 300 mg capsule 300 mg PO DAILY gabapentin 300 mg capsule 600 mg PO BEDTIME Label Comments: TAKE 1 CAPSULE BY MOUTH EVERY MORNING AND 2 CAPSULES EVERY EVENING bupropion HCl 300 mg tablet extended release 24 hr 300 mg PO DAILY aripiprazole 2 mg tablet 2 mg PO DAILY Label Comments: TAKE 1 TABLET BY MOUTH EVERY DAY propranolol 40 mg tablet 40 mg PO DAILY Qty: 1 0RF Referrals: Leonarda Shearer MD [Primary Care Provider] -
[2022-05-30] MEDS: KETOROLAC 30 MG/ML VIAL IM (10:48)
[2022-05-30] MEDS: HYDROCODONE/ACET 5/325 TABLET 1 TAB PO (10:49)
[2022-05-30 11:11] VITALS: BP 141/79; PULSE 79; RESP 18; O2SAT 99
== END 2022-05-30 11:12 | disposition home or self-care (01) ==
PROVIDERS: Emergency Provider Emergency Medicine; PCP Internal Medicine
DX: S39.012A Strain of muscle, fascia and tendon of lower back, initial encounter (principal)
CPT/HCPCS: 96372; 99283; J1885

== ENCOUNTER → 2023-04-08 12:35 | Outpatient (CLI) | payer OTHER, SELFPAY ==
[2022-02-14 02:15] VITALS: BMI 39.6
--- NOTE | 2023-04-08 | DI.MRI.S_ITS ---
PROCEDURE: MR LUMBAR SPINE WO CON INDICATIONS: Low back pain, unspecified TECHNIQUE: Noncontrast sagittal T1 spin echo and T2 fast echo, sagittal STIR, and T2 fast spin echo through the lumbar spine. In cases with scoliosis, additional coronal T2 fast spin echo may be performed. COMPARISON: None. FINDINGS: Image quality: Excellent. Alignment and Curvature: Straightening of the normal cervical lordosis. Bone Marrow: Diffusely decreased marrow signal throughout. No acute vertebral body compression fractures. Spinal Cord: Conus medullaris terminates at the L1 level. Visualized cord demonstrates normal signal and size. Paraspinous Soft Tissues: Bilateral renal cortical scarring. T12-L1: Normal appearance. L1-L2: Normal appearance. L2-L3: Disc desiccation and small posterior disc bulge. No central canal or neural foraminal stenosis. L3-L4: Disc desiccation and mild height loss. Small posterior disc bulge. No central canal or neural foraminal stenosis. L4-L5: Disc desiccation and minimal posterior disc bulge. Facet arthropathy. No central canal or neural foraminal stenosis. L5-S1: Disc desiccation and posterior disc bulge. Facet arthropathy. No central canal stenosis. Mild left neural foraminal stenosis. IMPRESSION: 1. Mild degenerative changes of the lumbar spine. No central canal stenosis. Mild neural foraminal stenosis on left at L5-S1. 2. Diffusely decreased marrow signal may represent an infiltrative process. Recommend correlation with lab values. Dictated by: Jaswinder Paul M.D. on 04/08/2023 at 16:20 Approved by: Jaswinder Paul M.D. on 04/08/2023 at 16:24
== END ==
PROVIDERS: PCP Internal Medicine; Referring Provider Physical Medicine & Rehabilitation Pain Medicine; Visit Provider Physical Medicine & Rehabilitation Pain Medicine
DX: M47.816 Spondylosis without myelopathy or radiculopathy, lumbar region (principal); M47.817 Spondylosis without myelopathy or radiculopathy, lumbosacral region; M48.07 Spinal stenosis, lumbosacral region; M54.50 Low back pain, unspecified
CPT/HCPCS: 72148

== ENCOUNTER → 2024-02-03 12:51 | Outpatient (CLI) | payer OTHER, SELFPAY ==
[2022-02-14 02:15] VITALS: BMI 39.6
--- NOTE | 2024-02-03 12:52 | DI.MRI.S_ITS ---
PROCEDURE: MR LUMBAR SPINE WO CON INDICATIONS: LOW BACK PAIN TECHNIQUE: Noncontrast sagittal T1 spin echo and T2 fast echo, sagittal STIR, and T2 fast spin echo through the lumbar spine. In cases with scoliosis, additional coronal T2 fast spin echo may be performed. COMPARISON: [facility], MR, MR LUMBAR SPINE WO CON, 04/08/2023, 12:44. FINDINGS: Image quality: Excellent Mild dextroscoliosis of the lumbar spine, centered at L3-4. Straightening of the lumbar spine. Mild retrolisthesis of L3 on L4, L4 on L5 and L5 on S1. Diffuse mild T1 hypointensity of the marrow signal, unchanged from prior exam. No marrow edema. Multilevel disc desiccation and disc bulge. Conus terminates at the level of L1-2, and is unremarkable. Disc bulge at T11-T12, resulting in mild central canal stenosis. Axial levels: T12-L1: Unremarkable L1-2: Unremarkable L2-3: Mild disc bulge. No stenosis. L3-4: Mild disc bulge. Mild right neural foraminal stenosis. No left neural foraminal stenosis. L4-5: Disc bulge. Mild left neural foraminal stenosis. No right neural foraminal stenosis. No central canal stenosis. L5-S1: Disc bulge. No central canal stenosis. Mild right and left neural foraminal stenosis, left greater right. Visualize sacrum is intact No abdominal aortic aneurysm. The right kidney is mildly atrophic in [place] in to the left. Scarring of bilateral kidneys. IMPRESSION: 1. Multilevel degenerate changes of the lumbar spine, most pronounced at L5-S1, where there is mild bilateral neural foraminal stenosis, left greater right, grossly unchanged from prior exam. 2. Diffuse mildly T1 hypointense marrow signal, unchanged and nonspecific. Recommend correlation with CBC. Dictated by: Fina Lira M.D. on 02/03/2024 at 21:43 Approved by: Fina Lira M.D. on 02/03/2024 at 21:51
== END ==
PROVIDERS: PCP Internal Medicine; Referring Provider Physical Medicine & Rehabilitation Pain Medicine; Visit Provider Physical Medicine & Rehabilitation Pain Medicine
DX: M47.816 Spondylosis without myelopathy or radiculopathy, lumbar region (principal); M47.817 Spondylosis without myelopathy or radiculopathy, lumbosacral region; M48.07 Spinal stenosis, lumbosacral region; M51.9 Unspecified thoracic, thoracolumbar and lumbosacral intervertebral disc disorder
CPT/HCPCS: 72148